=== PATIENT | female | born 1975 | race Caucasian/White ===

== ENCOUNTER 2021-09-15 11:48 | Emergency (ER) | payer BC, OTHER ==
[~2021-09-15] VITALS: Ht 172.7 cm; Wt 83.9 kg
[2021-09-15] MEDS ORDERED: KETOROLAC TROMETH 60MG/2ML VIAL IM ONE (12:30)
[2021-09-15 12:49] VITALS: BP 121/78
[2021-09-15] MEDS ORDERED: IBUP800T27 PO (13:20)
== END 2021-09-15 13:31 | disposition home or self-care (01) ==
LOC: ER 11:48 → EDBD 11:48 → ER 13:31
DX: S29.011A Strain of muscle and tendon of front wall of thorax, initial encounter (principal); F17.210 Nicotine dependence, cigarettes, uncomplicated; V43.62XA Car passenger injured in collision with other type car in traffic accident, initial encounter; Y93.89 Activity, other specified; Y92.410 Unspecified street and highway as the place of occurrence of the external cause; Y99.8 Other external cause status
CPT/HCPCS: 71101; 96372; 99283; J1885